=== PATIENT | female | born 1990 | race American Indian/Alaskan Native ===

== ENCOUNTER 2016-12-28 12:02 | Emergency (ER) | payer MEDICAID ==
[2016-12-28 13:17] LABS: Alanine Aminotransferase 9 units/L (7-56); Albumin 3.8 g/dL (3.9-5); Albumin/Globulin Ratio 1.5 %; Alkaline Phosphatase 57 units/L (35-129); Anion Gap 18 mmol/L; Bilirubin,Total < 0.2 mg/dL (0.1-1.2); Blood Urea Nitrogen 8 mg/dL (7-17); Calcium 8.7 mg/dL (8.4-10.2); Carbon Dioxide 22 mmol/L (22-30); Chloride 97.5 mmol/L (98-107); Glucose 58 mg/dL (65-100); Potassium 3.8 mmol/L (3.6-5.0); Sodium 134 mmol/L (137-145); Total Protein 6.4 g/dL (6.3-8.2)
[2016-12-28 13:26] LABS: Bacteria,Urine 1+ /HPF (Negative); Bilirubin,Urine NEG (Negative); Blood,Urine NEG (Negative); Ketones,Urine NEG (Negative); Leukocyte Esterase,Urine NEG (Negative); Mucus,Urine 3+ /HPF; Nitrite,Urine NEG (Negative); Protein,Urine <15 mg/dL mg/dL (Negative); Urobilinogen,Urine < 2.0 mg/dL (<2.0)
[2016-12-28 13:33] LABS: Basophils % (Auto) 0.6 % (0.0-1.8); Eosinophils % (Auto) 0.7 % (0.0-4.3); Hematocrit 34.9 % (30.3-42.9); Hemoglobin 10.9 gm/dl (10.1-14.3); Mean Corpuscular HGB Conc 31 % (30-34); Mean Corpuscular Volume 78 fl (79-97); Platelet Count 302 K/mm3 (140-440); Red Blood Count 4.46 M/mm3 (3.65-5.03); Red Cell Distribution Width 16.4 % (13.2-15.2)
[2016-12-28 13:35] LABS: Mean Corpuscular Hemoglobin 25 pg (28-32)
--- NOTE | 2016-12-28 15:26 | Ultrasound Report ---
FINAL REPORT PROCEDURE: US OB \T\gt; = 14 WEEKS FETUS TECHNIQUE: Real-time transabdominal sonography of the uterus, placenta, amniotic fluid, adnexa, and fetus was performed with image documentation. Detailed anatomic examination was performed. Measurements were obtained to determine age/size. M-mode Doppler was used to document heartbeat. CPT 04833 HISTORY: abd pain. . COMPARISON: No prior studies are available for comparison. FINDINGS: There is a single living intrauterine gestation currently visualized in the breech presentation with a heart rate of 163 beats per minute. Cervix length 3.4 centimeters. Subjectively the amount of amniotic fluid appears normal. Placenta is located posterior and is grade 0. No evidence of placenta abruption. No evidence of placenta previa. Lateral ventricles of the brain, thalamus, cavum septum pellucidum and posterior fossa of the brain are unremarkable. Four-chamber view of the heart is unremarkable. Three-vessel cord and cord insertion are unremarkable. The spine is unremarkable. Diaphragm appears intact. Stomach and bladder are visualized. Kidneys are unremarkable. Facial features were not defined on today's exam.. MEASUREMENTS: BPD: 4.7 centimeter equaled 20 week 2 days HC: 17.9 centimeter equaled 20 week 2 days AC: 15.4 centimeter equaled 20 week 4 days FL: 3.4 centimeter equaled 20 week 5 days Mean Gestational Age (composite criteria): 20 weeks 3 days Estimated Weight: 365 grams. Interval growth: No prior studies. Estimated Due Date (earliest scan): 05/14/2017 1.5 weeks according to today's exam. IMPRESSION: There is a single living intrauterine gestation currently visualized in the breech presentation. Subjectively the amount of amniotic fluid appears normal. No abnormalities are seen. Facial features were not defined today. Average sonographic age by today's study 20 weeks [address] EDC 05/14/2017 1.5 weeks..
--- NOTE | 2016-12-28 18:35 | Emergency Department Report ---
Blank Doc - Documentation Documentation: It was brought to my attention at patient states she is 19 weeks since 6 days upon her initial presentation. I discussed his case with Dr. Lewis upon arrival he suggested ER evaluation given that she is less than 20 weeks . Patient is still in the waiting room awaiting an available spot in the ED for evaluation. However, she was protocol with CBC, BMP, and UA and ultrasound. ultrasound actually states that patient is 20 weeks and 3 days. CBC, UA, and CMP are unremarkable. Several last from [facility] did not cross over and was verified by lab via telephone. Potassium is 3.8, chloride 97.5, and anion gap 18. Patient is in the waiting room and concerned due to her prolonged wait and continued contractions as per RN. I have recontacted Dr. Lewis to discuss possibility of transfer to L&D instead of being seen in the ED given patient's ultrasound results. Dr Lewis states he will try to verify her gestational age based on her US at [facility] last week. If she is less than 20 weeks gestational age based on that study then she can not be accepted to Labor and Delivery and will need to be evaluated I went to the waiting room to speak to pt. She describes contraction-like pain. Patient is upset due to the wait. She wants to eat a sandwich. Patient declined offer for Tylenol for pain. Since patient's ultrasound is okay and unlikely a surgical emergency at this time patient will be given a light snack consisting of a granola bar, crackers and some water. Patient will be instructed not to eat anything else until further evaluation. She was informed that I am awaiting call back from REAL ESTATE SALESPERSON physician regarding if she can be seen in labor and delivery. She was informed her labs, ua, US are normal and baby looks well at this time. Received call back at 6:25pm from Dr Lewis, pt is indeed 19 weeks and 6 based on last week US (verfied). She will not be accepted by labor and delivery. Dr Lewis suggests tylenol, ivf, and check cervical os to ensure it is closed. He is available for consult if needed once pt is fully evaluated.
[2016-12-28] MEDS ORDERED: TYLENOL PO ONE (21:06)
[2016-12-28] MEDS ORDERED: ZOFRAN IV ONE (21:06)
[2016-12-28] MEDS ORDERED: NACL 0.9% 1000 ML IV ONE (21:08)
--- NOTE | 2016-12-28 21:15 | Emergency Department Report ---
ED Abdominal Pain HPI - General Chief Complaint: Abdominal Pain Stated Complaint: ABD PAIN Source: patient Mode of arrival: Wheelchair Limitations: No Limitations - History of Present Illness Initial Comments: She is a 26-year-old 19.6 weeks gestation who presents with intermittent meet abdominal pain 1 day. Patient states yesterday morning around 10 AM she started to experience abdominal pain. Patient states the pain was intermittent and located to the mid pelvic region. [facility] and states she has an appointment this week. Patient states she went to sleep and at about 4 AM this morning the pain continued. She states she is not experiencing abdominal pain at the moment but was earlier. She states the abdominal pain comes and goes and is sharp in nature about 6 out of 10 in intensity. Patient had one episode of vomiting in well after eating a salad which here in the triage area earlier Patient denies fevers chills/shortness of breath/chest pain/vaginal bleeding or leaking of fluid/dysuria or hematuria or vaginal discharge Severity scale (0 -10): 10 - Related Data Previous Rx's Medication Instructions Recorded Last Taken Type Acetaminophen [Acetaminophen TAB] 650 mg PO Q6HR #30 tablet 12/28/16 Unknown Rx Doxylamine/Pyridoxine HCl 2 each PO QHS #30 tablet. 12/28/16 Unknown Rx [Gauri Saldivar 10-10 mg Tablet] Nitrofurantoin Posey/M-Cryst 100 mg PO BID #14 capsule 12/28/16 Unknown Rx [Macrobid CAP] Allergies Allergy/AdvReac Type Severity Reaction Status Date / Time No Known Allergies Allergy Unverified 12/28/16 12:27 ED Review of Systems ROS: Stated complaint: ABD PAIN Other details as noted in HPI Constitutional: denies: chills, fever, weakness Eyes: denies: eye pain, eye discharge, vision change ENT: denies: ear pain, throat pain, dental pain, hearing loss Respiratory: denies: cough, orthopnea, shortness of breath, SOB with exertion, wheezing Cardiovascular: denies: chest pain, palpitations Endocrine: no symptoms reported Gastrointestinal: vomiting. denies: abdominal pain, nausea, diarrhea, constipation, hematemesis, hematochezia Genitourinary: denies: urgency, dysuria, hematuria, discharge Musculoskeletal: denies: back pain, joint swelling, arthralgia, myalgia Skin: denies: rash, lesions Neurological: denies: headache, weakness, paresthesias Psychiatric: denies: anxiety, depression Hematological/Lymphatic: denies: easy bleeding, easy bruising ED Past Medical Hx - Past Medical History Additional medical history: ANEMIA. GENITAL HERPES - Surgical History Hx Breast Surgery: Yes (BREAST BIOPSY) - Social History Smoking Status: Never Smoker Substance Use Type: None - Medications Home Medications: Home Medications Medication Instructions Recorded Confirmed Last Taken Type Acetaminophen [Acetaminophen TAB] 650 mg PO Q6HR #30 tablet 12/28/16 Unknown Rx Doxylamine/Pyridoxine HCl 2 each PO QHS #30 tablet. 12/28/16 Unknown Rx [Diclegis Dr 10-10 mg Tablet] Nitrofurantoin Posey/M-Cryst 100 mg PO BID #14 capsule 12/28/16 Unknown Rx [Macrobid CAP] ED Physical Exam - General Limitations: No Limitations General appearance: alert, in no apparent distress - Head Head exam: Present: atraumatic, normocephalic - Eye Eye exam: Present: normal appearance, PERRL, EOMI Pupils: Present: normal accommodation - ENT ENT exam: Present: mucous membranes moist - Neck Neck exam: Present: normal inspection, full ROM. Absent: tenderness, lymphadenopathy - Respiratory Respiratory exam: Present: normal lung sounds bilaterally. Absent: respiratory distress, wheezes, rales, rhonchi, stridor - Cardiovascular Cardiovascular Exam: Present: regular rate, normal rhythm. Absent: systolic murmur, diastolic murmur, rubs, gallop - GI/Abdominal GI/Abdominal exam: Present: soft, normal bowel sounds, other (uterus fundus palpated at umbilicus). Absent: distended, tenderness, guarding, rebound, rigid , mass, pulsatile mass - Rectal Rectal exam: Present: normal inspection - External exam: Present: normal external exam. Absent: erythema, swelling, lesions, lacerations, bleeding Speculum exam: Present: normal speculum exam, vaginal discharge, other (no fluids visualized). Absent: erythema, cervical discharge, vaginal bleeding Bi-manual exam: Present: normal bi-manual exam. Absent: adnexal tenderness, adnexal mass - Extremities Exam Extremities exam: Present: normal inspection, full ROM, normal capillary refill. Absent: tenderness, calf tenderness - Back Exam Back exam: Present: normal inspection, full ROM. Absent: tenderness, CVA tenderness (R), CVA tenderness (L) - Neurological Exam Neurological exam: Present: alert, oriented X3, CN II-XII intact - Psychiatric Psychiatric exam: Present: normal affect, normal mood - Skin Skin exam: Present: warm, dry, intact, normal color. Absent: rash ED Course Vital Signs 12/28/16 12/28/16 12/28/16 12:18 20:31 20:35 Temperature 97.6 F 97.5 F L 98.5 F Pulse Rate 81 80 97 H Respiratory 19 18 20 Rate Blood Pressure 112/69 Blood Pressure 110/60 110/60 [Left] O2 Sat by Pulse 100 99 97 Oximetry ED Medical Decision Making - Lab Data Result diagrams: 12/28/16 12:46 12/28/16 12:46 - Medical Decision Making 26-year-old female at 19 weeks and 6 days presents with abdominal pain ED course: She received 1 L normal saline IV fluids with 8 mg of Zofran and 650 mg of Tylenol. Procardia 20 mg administered for contractions prophylaxis ultrasound shows: intrauterine at 20 weeks and 2 days with heart rate of 163 bpm, cervix length 3.4 cm report shows no evidence of placenta pressure or placenta previa. Vital signs stable. Patient is in no acute or respiratory distress. Cervical examination normal, cervix closed, no bleeding. Discussed with patient to take her medication as prescribed. Patient's case was discussed with Dr. Lewis who agrees with current management and recommended patient be discharged home with MicroBid 100 mg twice a day 7 days and follow up with life cycle's week. Discussed all results with patient. Patient states she understands and will comply to follow up Critical care attestation.: If time is entered above; I have spent that time in minutes in the direct care of this critically ill patient, excluding procedure time. ED Disposition Clinical Impression: UTI (urinary tract infection) in in second trimester Normal IUP (intrauterine ) on ultrasound Qualifiers: Trimester: second trimester Qualified Code(s): Z34.92 - Encounter for supervision of normal , unspecified, second trimester Disposition: DISCHARGED TO HOME OR SELFCARE Is pt being admited?: No Does the pt Need Aspirin: No Condition: Stable Instructions: Urinary Tract Infection in Women (ED), Abdominal Pain (ED) Additional Instructions: Increase your water intake to about 8-10 glasses per day. Follow-up which her VACCINES SOLUTIONS SPECIALIST within 2-3 days. Keep appointment with your OB doctor this week Take your medication as prescribed Prescriptions: Doxylamine/Pyridoxine HCl [Gauri Saldivar 10-10 mg Tablet] 2 each PO QHS #30 tablet. Acetaminophen [Acetaminophen TAB] 650 mg PO Q6HR #30 tablet Nitrofurantoin Posey/M-Cryst [Macrobid CAP] 100 mg PO BID #14 capsule Referrals: PRIMARY CARE, [Primary Care Provider] - 3-5 Days Forms: Work/School Release Form(ED) Time of Disposition: 23:50
[2016-12-28] MEDS ORDERED: MACROBID PO ONE (21:27)
[2016-12-28] MEDS ORDERED: PROCARDIA*For Tocolysis only PO ONE (23:10)
[2016-12-29 00:06] VITALS: BP 104/53
== END 2016-12-29 03:45 | disposition home or self-care (01) ==
LOC: ED 12:02
DX: O23.42 Unspecified infection of urinary tract in pregnancy, second trimester (principal); D64.9 Anemia, unspecified; Z3A.19 19 weeks gestation of pregnancy; Z34.92 Encounter for supervision of normal pregnancy, unspecified, second trimester
CPT/HCPCS: 36415; 76805; 80053; 81001; 85025; 87210; 96361; 96374; 99285; J2405; J7030

== ENCOUNTER 2017-01-26 01:34 | Inpatient (IN) | payer MEDICAID ==
[2017-01-26] MEDS ORDERED: LACTATED RINGERS 500 ML IV ONE (03:43)
[2017-01-26 04:27] LABS: Bacteria,Urine 1+ /HPF (Negative); Bilirubin,Urine NEG (Negative); Blood,Urine NEG (Negative); Ketones,Urine NEG (Negative); Leukocyte Esterase,Urine NEG (Negative); Mucus,Urine FEW /HPF; Nitrite,Urine NEG (Negative); Protein,Urine <15 mg/dL mg/dL (Negative); Urobilinogen,Urine < 2.0 mg/dL (<2.0); WBC,Urine < 1.0 /HPF (0.0-6.0)
--- NOTE | 2017-01-26 05:08 | Ultrasound Report ---
FINAL REPORT PROCEDURE: US OB LIMITED TECHNIQUE: Real-time limited sonographic examination was performed for evaluation of size, position, heartbeat, fluid volume for each fetus with image documentation (1 or more fetuses). CPT 43519 HISTORY: need to verify heart tones COMPARISON: No prior studies are available for comparison. FINDINGS: There is a single fetus in a breech presentation. There is no evidence of heart activity on this study. The findings are consistent with embryonic demise. There is an area mixed attenuation in the region of the placenta this measures approximately 12 centimeters in length. This may represent a small area clot formation near the placenta. IMPRESSION: There is a single fetus in a breech presentation. No evidence of heart activity consistent with demise. The above findings are discussed with the patient's floor nurse at the time of dictation 0404 central standard time on 01/26/2017
[2017-01-26 06:22] LABS: Urine Drugs of Abuse Note Disclamer
--- NOTE | 2017-01-26 06:25 | History and Physical Report ---
History of Present Illness Date of examination: 01/26/17 Chief complaint: Painful contractions since last PM History of present illness: 26-year-old at 24 weeks gestation presents with above complaints and issues, she is a life cycle ADMINISTRATIVE ASSOCIATE patient. She has been having crampy lower abdominal and back pain since last night, no loss of fluid no vaginal bleeding. She presented to triage where an ultrasound confirmed intrauterine demise. TVUS shows an Echogenic Mass of about 12 Cm at Right Posterior Uterus. Currently do not have any records and the patient; states care has been unremarkable. 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 denies: gonorrhea, hepatitis B, hepatitis C, HIV, syphilis, trichomonas Social history: single, full code. denies: smoking, alcohol abuse, prescription drug abuse, IV drug use - Obstetrical History Expected Date of Delivery: 05/18/17 Actual Gestation: 24 Week(s) 0 Day(s) : 3 Para: 0 Medications and Allergies Allergies Allergy/AdvReac Type Severity Reaction Status Date / Time No Known Allergies Allergy Unverified 12/28/16 12:27 Home Medications Medication Instructions Recorded Confirmed Last Taken Type Acetaminophen [Acetaminophen TAB] 650 mg PO Q6HR #30 tablet 12/28/16 Unknown Rx Doxylamine/Pyridoxine HCl 2 each PO QHS #30 tablet. 12/28/16 Unknown Rx [Diclegibrian Saldivar 10-10 mg Tablet] Nitrofurantoin Preston/M-Cryst 100 mg PO BID #14 capsule 12/28/16 Unknown Rx [Macrobid CAP] - Vital Signs Vital signs: Vital Signs Pulse Pulse Ox 76 99 01/26/17 01:37 01/26/17 01:37 Temp Pulse Resp BP Pulse Ox 341 H 80 L 01/26/17 04:55 01/26/17 04:55 - Physical Exam Genitourinary (Female): Positive: normal external genitalia (RN exam) Uterus: Negative: tender (RN exam) Extremities: Positive: normal - Obstetrical FHR: other (No FHT) Cervical Dilatation: 0 (Per RN exam) Results All other labs normal. Assessment and Plan A: 26 y/o at 24 wks with IUFD -Suspect abruption P: -Concurrently emotional, unable to examine or discuss plans -Admit -Obtained labs -From RN cervical exam, proceed with Cervidil induction - Patient Problems (1) 24 weeks gestation of Current Visit: Yes Status: Acute (2) Current Visit: Yes Status: Acute (3) Intrauterine in rainey , antepartum Current Visit: Yes Status: Acute
[2017-01-26] MEDS ORDERED: ePHEDrine SULFATE IV PRN (06:29)
[2017-01-26] MEDS ORDERED: MINERAL OIL PO PRN (06:29)
[2017-01-26] MEDS ORDERED: BRETHINE IVP PRN (06:29)
[2017-01-26] MEDS ORDERED: BRETHINE SUB-Q PRN (06:29)
[2017-01-26] MEDS ORDERED: CERVIDIL VG ONE ×2 (06:29→19:15)
[2017-01-26] MEDS ORDERED: XYLOCAINE 2% INFILTRATI ONE (06:29)
[2017-01-26] MEDS ORDERED: PITOCin/NS 20 UNIT/1000ML DRIP 20 UNITS/1,000 ML BAG IV SCH (07:00)
[2017-01-26] MEDS ORDERED: PITOCin/NS 30 UNIT/500ML 30 UNITS/500 ML BAG IV SCH (07:00)
[2017-01-26 07:20] LABS: Hematocrit 32.4 % (30.3-42.9); Hemoglobin 10.3 gm/dl (10.1-14.3); Mean Corpuscular HGB Conc 32 % (30-34); Mean Corpuscular Volume 78 fl (79-97); Platelet Count 262 K/mm3 (140-440); Red Blood Count 4.14 M/mm3 (3.65-5.03); Red Cell Distribution Width 14.8 % (13.2-15.2); White Blood Count 19.8 K/mm3 (4.5-11.0)
[2017-01-26 07:21] LABS: Mean Corpuscular Hemoglobin 25 pg (28-32)
[2017-01-26 07:30] LABS: INR 0.9 (0.87-1.13); Partial Thromboplastin Time 25.6 Sec. (24.2-36.6)
[2017-01-26 08:00] LABS: Alanine Aminotransferase 10 units/L (7-56); Albumin 4.1 g/dL (3.9-5); Albumin/Globulin Ratio 1.3 %; Alkaline Phosphatase 91 units/L (35-129); Anion Gap 18 mmol/L; Bilirubin,Total < 0.2 mg/dL (0.1-1.2); Blood Urea Nitrogen 5 mg/dL (7-17); Carbon Dioxide 21 mmol/L (22-30); Chloride 100.6 mmol/L (98-107); Glucose 92 mg/dL (65-100); Potassium 4.1 mmol/L (3.6-5.0); Sodium 135 mmol/L (137-145); Total Protein 7.3 g/dL (6.3-8.2)
[2017-01-26] MEDS: SUBLIMAZE IV PRN ×3 (10:16→18:52)
[2017-01-26] MEDS: ZOFRAN IV PRN ×2 (10:16→18:52)
[2017-01-26] MEDS ORDERED: REGLAN IV PRN (15:33)
[2017-01-27] MEDS: STADOL IV PRN ×2 (00:45→05:09)
[2017-01-27] MEDS: SUBLIMAZE IV PRN (03:15)
[2017-01-27] MEDS: LACTATED RINGERS 1,000 ML IV SCH ×2 (05:40→07:51)
--- NOTE | 2017-01-27 06:21 | Anesthesia Consultation ---
Anesthesia Consult and Med Hx Date of service: 01/27/17 - Airway Anesthetic Teeth Evaluation: Good ROM Head & Neck: Adequate Mental/Hyoid Distance: Adequate Mallampati Class: Class II Intubation Access Assessment: Probably Good - Pulmonary Exam CTA: Yes - Cardiac Exam Cardiac Exam: RRR - Pre-Operative Health Status ASA Pre-Surgery Classification: ASA2 Proposed Anesthetic Plan: Epidural, Spinal - Pulmonary Hx Asthma: No COPD: No Hx Pneumonia: No - Cardiovascular System Hx Hypertension: No - Central Nervous System Hx Seizures: No Hx Psychiatric Problems: No - Endocrine Hx Renal Disease: No Hx End Stage Renal Disease: No Hx Hypothyroidism: Yes (not currently being treated per patient) Hx Hyperthyroidism: No - Hematic Hx Anemia: Yes Hx Sickle Cell Disease: No - Other Systems Hx Alcohol Use: No - Additional Comments Anesthesia Medical History Comments: +IUFD
[2017-01-27] MEDS ORDERED: NARCAN 2 MG/2 ML IV PRN (06:22)
[2017-01-27] MEDS ORDERED: ePHEDrine SULFATE IV PRN (06:22)
[2017-01-27] MEDS ORDERED: fentaNYL-BUPIV 2 MCG/ML-0.125% 200 MCG/100 ML BAG EPIDURAL SCH (07:00)
--- NOTE | 2017-01-27 08:51 | Event Note ---
Date: 01/27/17 S: sleeping at present time O: Pit started at 4 mu this morning A: IUFD at 24 weeks P: Epidural in Expect
--- NOTE | 2017-01-27 10:23 | Procedure Note ---
OB Delivery Note - Delivery Date of Delivery: 01/27/17 Surgeon: LUIS TREVINO Estimated blood loss: other (400 cc) - Vaginal Delivery presentation: vertex Delivery position: OA Intrapartum events: abruption, other(please specify) (IUFD) Delivery induction: oxytocin Delivery monitor: none Route of delivery: Delivery placenta: spontaneous Delivery cord: 3 umbilical vessels Episiotomy: none Delivery laceration: none Anesthesia: epidural Delivery comments: of a non viable male at 1008 on 01/27/2017 over intact perineum. Placenta delivered spontaneously followed by large blood clot from placental abruption. Cord clamped and fetus passed to the mother. Uterus FF @ U-2, lochia small. - Infant A at 1 minute: 0 at 5 minutes: 0 Gender: Male
[2017-01-27] MEDS ORDERED: LANSINOH TP PRN (14:20)
[2017-01-27] MEDS ORDERED: SODIUM CHLORIDE FLUSH SYRINGE 10 ML IV NR (14:20)
[2017-01-27] MEDS ORDERED: BENADRYL PO PRN (14:20)
[2017-01-27] MEDS ORDERED: MILK OF MAGNESIA PO PRN (14:20)
[2017-01-27] MEDS ORDERED: TUCKS PAD TP PRN (14:20)
[2017-01-27] MEDS ORDERED: DERMOPLAST TP PRN (14:20)
[2017-01-27] MEDS ORDERED: TYLENOL PO PRN (14:20)
[2017-01-27] MEDS ORDERED: DULCOLAX PR PRN (14:20)
[2017-01-27] MEDS: NORCO 5/325 PO PRN ×2 (16:00→21:51)
[2017-01-27] MEDS: MOTRIN PO SCH (19:54)
[2017-01-27 21:08] LABS: Hematocrit 26.8 % (30.3-42.9); Hemoglobin 8.4 gm/dl (10.1-14.3)
[2017-01-28] MEDS: MOTRIN PO SCH ×3 (04:28→13:45)
--- NOTE | 2017-01-28 11:08 | Progress Note ---
Assessment and Plan A: PP day #1 Asymptomatic Anemia P: Follow routine orders Infed 100mg Im x 1 dose D/C Home today RTO in 6 Weeks Subjective - Subjective Date of service: 01/28/17 Patient reports: appetite normal, voiding normally, pain well controlled, flatus , ambulating normally : Objective - Vital Signs Latest vital signs: Vital Signs Temp Pulse Pulse Resp BP BP 01/28/17 00:11 97.5 F L 83 18 105/65 01/27/17 20:00 98.2 F 88 18 111/63 01/27/17 16:20 98.4 F 93 H 18 109/69 01/27/17 13:30 98.7 F 102 H 18 108/65 01/27/17 13:20 99.6 F 16 01/27/17 12:54 89 114/56 01/27/17 12:39 54 L 120/78 01/27/17 12:24 92 H 115/73 01/27/17 12:09 90 121/68 01/27/17 11:40 96 H 112/82 01/27/17 11:26 98.6 F 16 01/27/17 11:24 83 110/66 01/27/17 11:12 83 113/66 - Exam Breasts: Present: normal Cardiovascular: Present: Regular rate Lungs: Present: Normal air movement Abdomen: Present: normal appearance, soft, normal bowel sounds Uterus: Present: normal, firm, fundal height below umbilicus Extremities: Present: normal - Labs Labs: Abnormal lab results 01/27/17 Range/Units 20:43 Hgb 8.4 L (10.1-14.3) gm/dl Hct 26.8 L (30.3-42.9) %
--- NOTE | 2017-01-28 11:09 | Discharge Summary ---
Providers - Providers Date of Admission: 01/26/17 06:39 Date of discharge: 01/28/17 Attending physician: ASHLEY GRANADOS MD 01/26/17 19:44 Consult to Pastoral Care [CONS] Routine Comment: Reason For Exam: demise 01/27/17 18:03 Consult to Case Management [CONS] Routine Services Needed at Discharge: Suction Plate Carrier Cleaner Notified:: no Was contact made?: No Time called:: 18:00 Primary care physician: ASHLEY GRANADOS MD Hospitalization Reason for admission: IUFD Delivery: Episiotomy: none Laceration: none Other procedures: none complications: none Discharge diagnosis: intrapartum demise Condition at discharge: Good Disposition: DISCHARGED TO HOME OR SELFCARE Plan - Provider Discharge Summary Activity: routine, no sex for 6 weeks, no heavy lifting 4 weeks Diet: routine Instructions: routine Additional instructions: [] Smoking cessation referral if applicable(refer to patient education folder for contact #) [] Refer to [facility]'s [facility] Booklet Call your doctor immediately for: * Fever > 100.5 * Heavy vaginal bleeding ( >1 pad per hour) * Severe persistent headache * Shortness of breath * Reddened, hot, painful area to leg or breast * Drainage or odor from incision. * Keep incision clean and dry at all times and follow doctor's instructions regarding bathing/showering - Follow up plan Follow up: LUIS TREVINO CNM [Advanced Practice Nurse] - 6 Weeks
[2017-01-28 11:42] VITALS: BP 103/64
[2017-01-28] MEDS ORDERED: INFED IM ONE (12:00)
[2017-01-28] MEDS: NORCO 5/325 PO PRN (13:45)
== END 2017-01-28 16:02 | disposition home or self-care (01) | DRG 774 ==
LOC: TRG 01:34 → LD 06:39 → TRG 06:39 → OB 01-27 13:42
PROVIDERS: ADMIT Obstetrics & Gynecology; ATTEND Obstetrics & Gynecology
PROC: 10E0XZZ Delivery of Products of Conception, External Approach (ICD-10-PCS; principal; 2017-01-27)
PROC: 3E033VJ Introduction of Other Hormone into Peripheral Vein, Percutaneous Approach (ICD-10-PCS; 2017-01-27)
PROC: 00HU33Z Insertion of Infusion Device into Spinal Canal, Percutaneous Approach (ICD-10-PCS; 2017-01-27)
PROC: 3E0R3CZ (ICD-10-PCS; 2017-01-27)
DX: O36.4XX0 Maternal care for intrauterine death, not applicable or unspecified (principal); O45.92 Premature separation of placenta, unspecified, second trimester; O90.81 Anemia of the puerperium; D64.9 Anemia, unspecified; Z3A.24 24 weeks gestation of pregnancy; Z37.1 Single stillbirth
CPT/HCPCS: 36415; 59200; 76815; 80053; 80307; 81001; 85014; 85018; 85027; 85384; 85610; 85730; 86850; 86900; 86901; 88305; J0595; J1750; J2405; J2590; J2765; J3010; J7120

== ENCOUNTER 2022-04-16 20:32 | Emergency (ER) | payer MEDICAID, OTHER ==
[2022-04-16 22:53] VITALS: BP 118/70
[2022-04-17] MEDS ORDERED: IBUPROFEN 600 MG TAB PO ONE (01:30)
[2022-04-17] MEDS ORDERED: ACETAMINOPHEN 500 MG TAB PO ONE (01:30)
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
== END 2022-04-17 03:33 | disposition home or self-care (01) ==
LOC: ED 20:32
DX: M62.830 Muscle spasm of back (principal); V89.2XXA Person injured in unspecified motor-vehicle accident, traffic, initial encounter; F17.200 Nicotine dependence, unspecified, uncomplicated; Y93.89 Activity, other specified; Y92.89 Other specified places as the place of occurrence of the external cause; Y99.8 Other external cause status
CPT/HCPCS: 72100; 99283

== ENCOUNTER 2022-04-29 22:18 | Emergency (ER) | payer SELFPAY ==
[2022-04-29 22:36] VITALS: BP 97/54
--- NOTE | 2022-04-30 09:07 | Electrocardiograph Report ---
[facility] Test Date: 2022-04-29 Test Time: 22:31:25 Pat Name: ARNIE TREVIÑO Department: Room: Gender: F Audiology Doctor: HARLEY : 1990 Requested By: ED DOC Order Number: [id number] Reading MD: Pino Schilling Measurements Intervals [place] Rate: 86 P: 61 CO: 191 QRS: 63 QRSD: 87 T: 57 QT: 361 QTc: 433 Interpretive Statements Sinus rhythm No previous ECG available for comparison Electronically Signed On 04-30-2022 9:06:52 EDT by Pino Schilling
== END 2022-04-30 19:00 | disposition left against medical advice (07) ==
LOC: ED 22:18
DX: R07.89 Other chest pain (principal); Z53.21 Procedure and treatment not carried out due to patient leaving prior to being seen by health care provider
CPT/HCPCS: 93005

== ENCOUNTER 2022-07-15 10:20 | Emergency (ER) | payer SELFPAY ==
[2022-07-15 11:48] VITALS: BP 105/52
[2022-07-15] MEDS ORDERED: IBUPROFEN 800 MG TAB PO ONE (12:04)
[2022-07-15] MEDS ORDERED: AMOXICILLIN 500 MG CAP PO ONE (12:04)
[2022-07-15] MEDS ORDERED: HYDROcodone/ACETAMINOPHEN 5-325 MG TAB PO ONE (12:04)
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
== END 2022-07-15 12:30 | disposition home or self-care (01) ==
LOC: ED 10:20
DX: L73.9 Follicular disorder, unspecified (principal); Z98.890 Other specified postprocedural states; Z79.899 Other long term (current) drug therapy
CPT/HCPCS: 99282